=== PATIENT | female | born 2000 | race Caucasian/White ===

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

== ENCOUNTER 2018-02-28 18:01 | Inpatient (IN) | payer OTHER ==
[2018-02-28] MEDS: Dextrose 5 % And 0.9 % NaCl 1,000 ML IV SCH (19:38)
[2018-02-28 19:39] VITALS: BMI 23.3
[2018-02-28] MEDS ORDERED: Ondansetron HCl/PF 4 MG/2 ML Vial IVP PRN (19:42)
[2018-02-28] MEDS ORDERED: Ondansetron ODT 4 MG TAB PO PRN (19:42)
[2018-02-28] MEDS ORDERED: Mag-Al 1200 mg/1200 mg/30 ML UDCUP PO PRN (19:42)
[2018-02-28] MEDS ORDERED: Vancomycin HCl 1.25 GM in Sodium Chloride 0.9% 250 ML 250 ML IVPB SCH (20:15)
[2018-02-28] MEDS: Acetaminophen 325 MG TAB PO PRN (20:48)
[2018-02-28] MEDS: Famotidine 20 MG TAB PO SCH (20:49)
[2018-02-28] MEDS: Docusate 100 MG CAP PO SCH (20:50)
[2018-02-28] MEDS: Cefepime 2 GM, Syringe 2.5 ML in Sterile Water 10 ML SLOW IVP SCH (20:59)
[2018-02-28] MEDS ORDERED: Vancomycin HCl 1 GM in Premix Bag 1 BAG IVPB SCH (21:00)
[2018-02-28 21:10] LABS: Calc. Creatinine Clearance 132 mL/min (70-130); Estimated GFR-MDRD Greater than 90
[2018-02-28 21:33] LABS: Bilirubin Small (Negative); Blood, Urine Negative (Negative); Clarity CLEAR (Clear); Glucose, Urine (Dipstick) Negative (Negative); Leukocyte Negative (Negative); Nitrite Negative (Negative); Protein, Urine (Dipstick) Trace mg/dL (Neg-Trace); Specific Gravity, Urine 1.024 (1.002-1.036)
[2018-02-28 21:35] LABS: Bacteria/HPF Rare-Few HPF (None Seen); Hyaline Casts/LPF 0-3 HYALINE CAST LPF (0-3 Hyaline); Pathc Cast-AUWi Flag 0.43 (0-2.49); RBC/HPF 0-3 HPF (0-3); Squamous Epithelial 0-3 HPF (0-3); WBC/HPF 0-3 HPF (0-3)
[2018-02-28] MEDS ORDERED: Cefepime 2 GM in Sodium Chloride 0.9% 100 ML IVPB SCH (22:00)
--- NOTE | 2018-03-01 01:58 | HP ---
PRIMARY CARE PHYSICIAN: Currently does not have the primary care physician. CHIEF COMPLAINT: Fever and low white blood cell count. HISTORY OF PRESENT ILLNESS: Ms. Zacarias is a pleasant 17-year-old female that has a history of ulcera tive colitis. She says that her problem started about 2 weeks ago when she says she generally was no t feeling well. She was having some vomiting and nausea, which she attributed to some type of GI bug . She says that she started shortly after she had her stitches removed for surgery to remove a pilon idal cyst. She says at that time she was also feeling sweaty and having chills. These symptoms got a little bit better, but then she felt like she should go to see her manager hvac since she has this history of ulcerative colitis to make sure that everything was okay with regard to the GI syste m. At that time, she saw Dr. Yousif and he did some lab work and noted that her white blood cell cou nt was low. She says it was around 2000 at that time, and he attributed to the mercaptopurine, which she had been on since September. She says that time past and the nausea got better, but she still fe lt lethargic and like she was going to pass out and was having high fevers last night was 102 and the n earlier today it was 103. She came to see Dr. Yousif once again and this time lab work showed that her white count was even lower at 1000 with 22% neutrophils, 10% bands, and for this reason she was recommended to come to the ER to be directly admitted for neutropenic fever. The patient denies any other symptoms such as sore throat, cough, or congestion, no chest pain, no shortness of breath, no d iarrhea, no abdominal pain, no dysuria. REVIEW OF SYSTEMS: Constitutional: She has had subjective fever as well as chills, no night sweats, no weight loss. HEENT: She denies any headache, no dizziness, no sore throat, no rhinorrhea, neck pain, no adenopathy. Pulmonary: No hemoptysis, no cough, no wheezing. Cardiovascular: She denies any chest pain, no shortness of breath, no PND, and orthopnea. Gastrointestinal: She has had some n ausea, but no vomiting, no diarrhea, no blood in the stools. Genitourinary: No urinary frequency, h ematuria, no hesitancy. Neurologic: No focal weakness, numbness, no seizures. Musculoskeletal: No muscle pains, weakness, or joint pains. Skin And Integument: No skin changes. No rash. PAST MEDICAL HISTORY: Significant for ulcerative colitis. PAST SURGICAL HISTORY: She has surgery for ingrown toenails, recent surgery for pilonidal cyst remov al on 02/03/2018. She says she has had numerous colonoscopies. ALLERGIES: No known drug allergies. SOCIAL HISTORY: She is a nonsmoker, nondrinker. She is single and she is a student at [employer]. FAMILY HISTORY: Negative for any inheritable diseases. CURRENT MEDICATIONS: Include mercaptopurine, mesalamine, folic acid, and control pills. PHYSICAL EXAMINATION: GENERAL: She is alert and oriented. She appears to be in no acute distress. VITAL SIGNS: Her heart rate is 98, temperature is 99.8, and respiratory rate is 18. HEENT: Pupils are equal, round, and reactive. Extraocular muscles are intact. Her sclerae anicteri c. Throat no erythema, no exudates. NECK: No adenopathy, no bruits. LUNGS: Clear to auscultation with no wheezing or rales. CARDIOVASCULAR: She has a normal S1 and S2. I did not appreciate any S3 or S4. No murmurs, clicks or rubs. ABDOMEN: Soft. It is nontender, nondistended. Positive for bowel sounds. There is no rebound or g uarding. EXTREMITIES: There is no clubbing, cyanosis, no edema. NEUROLOGICALLY: The exam is nonfocal. SIGNIFICANT LABORATORY DATA: White blood cell count is 1.0, hemoglobin 9.4, hematocrit is 26.6, plat elet count is 34. Sodium 141, potassium 3.9, chloride is 105, CO2 is 29, BUN of 8, creatinine of 0.6 7, glucose is 84. AST is 38, ALT is 86. ASSESSMENT AND PLAN: This is a pleasant 17-year-old female who presented to her manager hvac's office with fever, generalized malaise, and actually pancytopenia. Her absolute neutrophil count is around 300, and therefore she is at risk for typical as well as opportunistic infections. She will be admitted and placed on neutropenic precautions. She will be started on broad-spectrum IV antibiot ics and her infectious disease specialist, Dr. Arora has been consulted. For the pancytopenia, this is presumed to be secondary to mercaptopurine, she has not had any dose si nce approximately a week ago. We will continue to monitor the trend. Should we not see improvement in the pancytopenia then we may need to consult Hematology as well. Blood and urine cultures as well as chest x-ray will be obtained. Further testing with regard to potential infectious disease proces ses will be as per Dr. Arora.
[2018-03-01] MEDS: Cefepime 2 GM, Syringe 2.5 ML in Sterile Water 10 ML SLOW IVP SCH ×2 (05:42→13:12)
[2018-03-01] MEDS: Acetaminophen 325 MG TAB PO PRN ×2 (05:47→16:29)
[2018-03-01] MEDS: Vancomycin HCl 1 GM in Premix Bag 1 BAG IVPB SCH ×3 (05:47→22:17)
[2018-03-01 05:48] LABS: Band 2 % (5-11); Eosinophils 6 % (0-10); Hemoglobin 10.1 g/dL (12.0-16.0); Lymphocytes 70 % (28-48); MDiff Complete? YES; Mean Corpuscular HGB CONC 34.6 g/dL (32.0-36.0); Mean Corpuscular Hemoglobin 33.9 pg (25.0-35.0); Mean Platelet Volume 13.5 fL (7.4-10.4); Monocytes 6 % (0-4); Neutrophil 16 % (31-61); PLT Morphology Comment Appears Decreased; Platelet Count 47 thou/uL (130-400); RBC Distribution Width 19.8 % (11.5-14.5); Red Blood Cell (RBC) Count 2.97 mill/uL (4.00-5.20); White Blood Cell (WBC) Count 1.6 thou/uL (4.8-10.8)
--- NOTE | 2018-03-01 06:06 | CON ---
DATE OF CONSULTATION: 02/28/2018 HISTORY OF PRESENT ILLNESS: Ms. Zacarias seen in the office today, she is a 17-year-old with history o f ulcerative colitis; I saw her initially last year for the first time, last July. She reported a diagnosis of Crohn's in 2015. She also got this in 2016 while living in [place]. She has had a sm all perirectal abscess, however, at one point in time, she had rapid progression of a flare in sympto ms over the July and ended up hospitalized with IV steroids at one time, on the way she was treate d for C. diff and was treated for inflammatory bowel disease. Ultimately, she finally did calm down with a pretty heavy dose steroid taper and 5-ASA drugs, went home on 08/05/2017, with this being the second large steroid taper, she required since her diagnosis 2 years ago. Discussed immunomodulator and biologic therapy, she opted for the immunomodulator therapy. We started on 6-MP 75 mg daily. Mac murcia had normal TPMT activity. She was very slow to come off the steroids and had a couple of small fla res as we tapered. In December, she had low 6-TG of 203 after being on 100 mg a day of 6-MP that was on 12/21 and she was started in early July. The decision was going to made to bump her dose ____ she was moved to 150 mg. Retrospect, this is a poor choice as her MCV had gone to 103 by 12/21, and it was 107 on 02/02 with a white count dropped from 8.4-2.7. Her platelet count, however, was stabl e 170 and 320 on 02/02. The patient came in last week in my office and noted she was having some fev er, nausea, vomiting, diarrhea, felt she has gastroenteritis. She had a white count of 2000 with ANC calculated at 1600. Her symptoms had almost completely resolved, she was given stool studies, but d id not complete these as her symptoms have all resolved completely. She returned today; however, hav ing fever for the last week up to 103. Her white count was 1, her hemoglobin was 9.4, and platelet c ount was 34,000 with 22% neutrophils, ANC at 220. She looked fine in the office. We had stopped the 6-MP last week when her counts were noted to be dropping, but with her neutropenia and fever, felt t he need to admit her and probably get ID involved and probably start her empiric antibiotics. She denies any rashes or arthralgias. She has had some sweats. She denies any headaches or vision c hanges. PAST MEDICAL HISTORY: Inflammatory bowel disease. PAST SURGICAL HISTORY: Colonoscopy in 08/11/2017 and in 2016. ALLERGIES: None. HOME MEDICATIONS: She continues Lialda and she was on 6-MP 50 mg 2.5 a day, she is on Samara cont rol pills. She is on no other supplements. SOCIAL HISTORY: She is a ____ she is a freshman. She is planning on going overseas for school, I th ink this semester she has finals coming up this week. PHYSICAL EXAMINATION: VITAL SIGNS: In my office on exam, she was afebrile. Vital signs are stable. HEENT: Oropharynx without lesions. NECK: Supple, without adenopathy. LUNGS: Clear. HEART: Regular rate and rhythm, without clicks or murmurs. ABDOMEN: Soft, nontender, without palpable hepatosplenomegaly. EXTREMITIES: No clubbing, cyanosis or edema. LABORATORY DATA: Comprehensive metabolic profile is normal except for AST and ALT of 38 and 86. ASSESSMENT: Neutropenic fever. PLAN: I have talked to Hospitalist, Dr. Murray about getting her admitted. Cultures. Start her on b road spectrum antibiotics. We will ask ID to see her and we would ask Hematology to see her to see i f their opinion is on whether she should be given Neupogen or start bone marrow stimulant. At this t gina, she seems not very ill, I am not sure it is necessary to jump to have this.
[2018-03-01] MEDS: Dextrose 5 % And 0.9 % NaCl 1,000 ML IV SCH ×3 (06:27→22:18)
[2018-03-01] MEDS: Docusate 100 MG CAP PO SCH ×2 (07:39→20:49)
[2018-03-01] MEDS: Famotidine 20 MG TAB PO SCH ×2 (07:39→20:49)
--- NOTE | 2018-03-01 10:07 | RAD ---
TWO VIEW CHEST: HISTORY: Hospital admittance with chest screening. FINDINGS: Lung ferreira are clear. Heart and mediastinum appear normal. Osseous structures are unremarkable. IMPRESSION: No acute finding. POS: [facility]
[2018-03-01 12:26] LABS: Ref Lab Test Ordered THIOMETS; Reference Lab Name LABCORP
--- NOTE | 2018-03-01 13:11 | PRG ---
DATE OF SERVICE: 03/01/2018 The patient feels a little bit sluggish and just fatigued, malaise today. She has no headache. She has no nausea, vomiting or diarrhea. She has no cough. PHYSICAL EXAMINATION: VITAL SIGNS: Temperature max recorded is 101.5 at 0420 this morning. The patient states she was act ually 102 overnight, pulse is 98, blood pressure 116/76. HEENT: Oropharynx clear. NECK: Supple. LUNGS: Clear. HEART: Regular rate and rhythm. ABDOMEN: Nontender. LABORATORY STUDIES: White count 1.6 with hemoglobin 10.6, MCV is 98, platelet count is 47,000 16% se gs, 70% lymphocytes. 02/02/2018, showing negative HIV test. 12/21/2017 - She had negative ____. Chest x-ray; no acute findings. Urine normal. Microbiology: Blood cultures negative. Clostridium difficile not done as this was formed stool. ASSESSMENT: 1. Neutropenic fever. Cultures negative thus far on Vancomycin and cefepime. She has continued to have fever and today cultures are negative thus far. She has a little malaise. Yesterday she felt b yomaira. We will await ID consult. 2. Neutropenia, likely related to the 6-MP this was started in July at 100 mg a day. Her dose wa s increased on 12/21/2017 to 125 mg daily. She had a subtherapeutic level after 4 months. However, shortly after this on 02/02/2018 she had a dropped white count 2.7. The drug was held. She had feve r that began. She had a diarrheal illness about 2 weeks ago which resolved and now neutropenic fever . She has been seen by Hematology yesterday who recommended holding off on Neupogen or Neulasta. Mac murcia is awaiting ID consult today. I have discussed with the patient the fact that I do not think she should travel to [facility] if she is neutropenic. PLAN: Continue regular diet, hydration, reverse isolation, antibiotics, folic acid.
--- NOTE | 2018-03-01 14:08 | PDOC.PN ---
- Subjective Encounter Start Date: 03/01/18 Encounter Start Time: 14:06 Ms. Zacarias was seen today in follow-up of Neutropenic fever. She says she feels a little worse today. she has a sore throat, and noted some congestion and post nasal drip. She also feels more lethargic. - Objective Resuscitation Status: Resuscitation Status FULL:Full Resuscitation MAR Reviewed: Yes Vital Signs & Weight: Vital Signs (12 hours) Temp Pulse Resp BP BP Pulse Ox 03/01/18 11:39 98 18 116/76 100 03/01/18 08:06 97.5 F L 104 H 16 108/69 95 03/01/18 08:00 97.5 F L 104 H 16 03/01/18 07:33 100 F H 03/01/18 04:21 101.5 F H 99 20 137/83 100 Weight Weight 140 lb 8 oz I&O: 02/28/18 03/01/18 03/02/18 06:59 06:59 06:59 Intake Total 120 Balance 120 Result Diagrams: 03/01/18 04:28 02/28/18 20:30 Phys Exam - Physical Examination HEENT: PERRLA, sclera anicteric, oral pharynx no lesions Neck: no nodes Respiratory: no wheezing, no rales, no rhonchi, clear to auscultation bilateral Cardiovascular: RRR, no significant murmur, no rub Gastrointestinal: soft, non-tender, no distention, positive bowel sounds Musculoskeletal: no edema Dx/Plan (1) Neutropenic fever Code(s): D70.9 - NEUTROPENIA, UNSPECIFIED; R50.81 - FEVER PRESENTING WITH CONDITIONS CLASSIFIED ELSEWHERE Status: Acute (2) Ulcerative colitis Code(s): K51.90 - ULCERATIVE COLITIS, UNSPECIFIED, WITHOUT COMPLICATIONS Status: Acute - Plan * Neutropenic Fever- continue Cefepime and Vancomycin. All cultures are negative so far * Ulcerative Colitis- stable does not appear to have active disease now * Tachycardia- suspect this is from fever- will monitor consider CTA of chest if it persists * Await ID input.
[2018-03-01] MEDS ORDERED: Chloraseptic Spray 180 ml Bottle PO PRN (14:15)
[2018-03-01] MEDS ORDERED: Loratadine/Pseudoephedrine 10/240 mg Tablet PO PRN (14:16)
[2018-03-01] MEDS ORDERED: Meropenem 1 GM in Sodium Chloride 0.9% 100 ML IVPB SCH (20:00)
[2018-03-01] MEDS: MEROPENEM 1 GM/50 ML 1 GM in Premix Bag 1 BAG IVPB SCH (20:48)
[2018-03-01 21:52] LABS: Vancomycin, Trough 11.1 ug/mL
--- NOTE | 2018-03-01 23:21 | CON ---
DATE OF CONSULTATION: 03/01/2018 REASON FOR CONSULTATION: Neutropenia with fever. HISTORY OF PRESENT ILLNESS: A 17-year-old with history of ulcerative colitis and also on mercaptopurine, mesalamine, folic acid, and control pills, who developed neutropenia. She also had some surgery to remove a pilonidal cyst. The patient had been taken mercaptopurine since September and probably the drug caused the neutropenia. On arrival, her heart rate was 98, temperature 99.8, and respiratory rate 18. The exam was fairly unremarkable. Initial white cell count 1.0 with about 250 neutrophils, hemoglobin 9.4, platelets 34, and creatinine 0.67. Currently, she is awake. She does not appear in distress. Denies headaches, no visual symptoms, sore throat, odynophagia, and dysphagia. No cough or sputum production. No chest pain, no abdominal pain, and no pain in the surgical site. No joint symptoms. No neurological symptoms. PAST MEDICAL HISTORY: Ulcerative colitis, pilonidal cyst with recent removal, ingrown toenails, and colonoscopies. ALLERGIES: None. SOCIAL HISTORY: Nonsmoker. She is a student at [employer]. No drug use. FAMILY HISTORY: Noncontributory. CURRENT MEDICATIONS: Cefepime, dextrose, docusate, famotidine, folic acid, loratadine, ondansetron, and vancomycin. PHYSICAL EXAMINATION: VITAL SIGNS: T-max 102.6 currently 101.9, pulse is 111, respiratory rate 18, and O2 sat 99%. GENERAL: Appears in no distress. SKIN: Not remarkable. No petechia. The pilonidal cyst surgical site has just mild erythema, no tenderness, no drainage. Stitches that were removed a few weeks ago. The patient has a peripheral IV access. No lymphadenopathy. HEENT: Ocular movements are conjugate. Nasal passages patent. Oral cavity moist. NECK: Supple, no jugular venous distention. LUNGS: Symmetric clear breath sounds. HEART: S1, S2, regular rate. No S3 or S4. ABDOMEN: Soft, nondistended or tender. The pilonidal cyst surgical site is not tender, does not appear swollen, there is no drainage, only mild redness at the site of the incision. All stitches have been removed. EXTREMITIES: Moves all extremities equally. No edema. Pulses normal in dorsalis pedis. Plantar responses are flexure. NEUROLOGIC: Nonfocal. LABORATORY DATA: White cell count 1.6, hemoglobin 10.1, platelets 47,000 with 18% neutrophils plus bands that will give us approximately 280-300 neutrophil characteristics in the peripheral blood. Chemistry with a creatinine 0.69. Urinalysis was fairly unremarkable except for some bilirubin. Thiopurine methyltransferase assay has been submitted. ASSESSMENT: Ulcerative colitis with mercaptopurine toxicity, neutropenia, now with fever. DISCUSSION: Mercaptopurine toxicity is a fairly common occurrence in this type of setting and usually associated with polymorphisms in the metabolism of the drug. The onset of this type of manifestations can be a sudden or more delayed. The duration of neutropenia can after discontinuation of the drug be up to 1 month, so it may be a somewhat delayed progress of neutropenia recovery as opposed to what one sees with the usual chemotherapeutic agent. The patient has developed fever and the usual pathogens associated with neutropenic fever need to be considered in addition to viral pathogens. Cultures have been submitted. It does not appear that there is any inflammatory process at the pilonidal cyst site; however, one has to acknowledge that this in the presence of neutropenia inflammatory manifestations may be subdued. Because of that history of pilonidal surgery, I think the addition of vancomycin and transitioning to meropenem is justified. Consider growth factor administration. MTDD
[2018-03-02] MEDS: Acetaminophen 325 MG TAB PO PRN ×3 (00:35→23:30)
[2018-03-02] MEDS: MEROPENEM 1 GM/50 ML 1 GM in Premix Bag 1 BAG IVPB SCH ×3 (04:21→21:01)
[2018-03-02 04:51] LABS: Band 2 % (5-11); Hemoglobin 8.8 g/dL (12.0-16.0); Lymphocytes 88 % (28-48); MDiff Complete? YES; Mean Corpuscular HGB CONC 35.2 g/dL (32.0-36.0); Mean Corpuscular Hemoglobin 34.3 pg (25.0-35.0); Mean Corpuscular Volume 97.4 fl (77.0-87.0); Mean Platelet Volume 10.5 fL (7.4-10.4); Neutrophil 10 % (31-61); PLT Morphology Comment Appears Decreased; Platelet Count 39 thou/uL (130-400); RBC Distribution Width 20.3 % (11.5-14.5); Red Blood Cell (RBC) Count 2.55 mill/uL (4.00-5.20); White Blood Cell (WBC) Count 1.5 thou/uL (4.8-10.8)
[2018-03-02] MEDS: Vancomycin HCl 1 GM in Premix Bag 1 BAG IVPB SCH ×3 (05:44→22:42)
[2018-03-02] MEDS: Folic Acid 1 MG TAB PO SCH (08:45)
[2018-03-02] MEDS: Docusate 100 MG CAP PO SCH ×2 (08:45→21:01)
[2018-03-02] MEDS: Famotidine 20 MG TAB PO SCH ×2 (08:45→21:01)
[2018-03-02] MEDS: Dextrose 5 % And 0.9 % NaCl 1,000 ML IV SCH (14:16)
--- NOTE | 2018-03-02 15:15 | PDOC.PN ---
- Subjective Encounter Start Date: 03/02/18 Encounter Start Time: 15:12 Ms. Zacarias was seen seen in follow-up of Neutropenic fever. She says she has a little sore throat, but otherwise ok. - Objective Resuscitation Status: Resuscitation Status FULL:Full Resuscitation MAR Reviewed: Yes Vital Signs & Weight: Vital Signs (12 hours) Temp Pulse Resp BP Pulse Ox 03/02/18 11:25 97.9 F 107 H 16 107/71 98 03/02/18 08:00 98.5 F 109 H 16 93/57 L 98 03/02/18 05:00 98.0 F Weight Weight 140 lb 8 oz I&O: 03/01/18 03/02/18 03/03/18 06:59 06:59 06:59 Intake Total 120 Balance 120 Result Diagrams: 03/02/18 03:49 02/28/18 20:30 Phys Exam - Physical Examination HEENT: PERRLA Respiratory: no wheezing, no rales, no rhonchi, clear to auscultation bilateral Cardiovascular: RRR, no significant murmur, no rub Gastrointestinal: soft, non-tender, no distention, positive bowel sounds Musculoskeletal: no edema Dx/Plan (1) Neutropenic fever Code(s): D70.9 - NEUTROPENIA, UNSPECIFIED; R50.81 - FEVER PRESENTING WITH CONDITIONS CLASSIFIED ELSEWHERE Status: Acute (2) Ulcerative colitis Code(s): K51.90 - ULCERATIVE COLITIS, UNSPECIFIED, WITHOUT COMPLICATIONS Status: Acute - Plan * Neutropenic Fever- Continue Vancomycin and Cefepime * Discussed with Dr. Arora- will check lower extremity dopplers to rule out VTE , and if negative then she can possibly be discharged home this afternoon on oral antibiotics * Neutropenia- is about the same- it may take some time to recover from the Mercaptopurine * UC- Stable.
--- NOTE | 2018-03-02 16:26 | ULT ---
ULTRASOUND WITH DOPPLER DUPLEX VENOUS LOWER EXTREMITIES BILATERAL: 03/02/18 HISTORY: 17-year-old female with bilateral lower extremity edema. TECHNIQUE: Color flow Doppler, spectral waveform analysis of pulsed Doppler, and chapa-scale imaging with corbin austin and augmentation, were used to evaluate the bilateral common femoral, femoral, popliteal, advertiser ior tibial, and superficial femoral, veins; and the proximal portions of the profunda femoral and gre ater saphenous, veins. FINDINGS: There is normal compressibility, demonstration of blood flow by color Doppler and pulsed Doppler, and response to augmentation, in all interrogated veins. IMPRESSION: Negative. No deep vein thrombosis in the bilateral lower extremities. jn[] POS: [facility]
--- NOTE | 2018-03-02 20:29 | PRG ---
DATE OF SERVICE: 03/02/2018 SUBJECTIVE: Feeling about the same, still having fevers she has 101 at this time. No respiratory sy mptoms. No abdominal pain, no pain at the pilonidal surgery site. No neurological symptoms. No jessie rrhea. She has defervesced up to 101.6 again. OBJECTIVE: LUNGS: Clear. S1, S2, regular rate. ABDOMEN: Soft and not distended. No joint inflammatory activity noted. LABORATORY DATA: White cell count 1.5, hemoglobin 8.8, platelets 39. Total neutrophil count is at l ittle bit more than 150. Blood cultures no growth thus far. C. diff negative. Urine culture negati ve. Venogram negative. Chest x-ray with no infiltrate. ASSESSMENT: Ulcerative colitis with a mercaptopurine induced neutropenia, anemia and thrombocytopeni a is still having fever, we will continue meropenem and vancomycin for the time being. May have to add antifungals tomorrow if she continues to have fever, consider starting grew Neupogen since I expe ct a more protracted course of neutropenia then with the usual chemotherapeutic agent.
[2018-03-02 21:46] LABS: Vancomycin, Trough 14.2 ug/mL
--- NOTE | 2018-03-03 01:05 | PRG ---
DATE OF SERVICE: 03/02/2018 SUBJECTIVE: Ms. Zacarias continues to feel some malaise. OBJECTIVE: VITAL SIGNS: She was afebrile all day until 5:00 she had a temperature of 101.6, blood pressure 110/ 71, respirations 18, pulse 110 when she spikes fever. GENERAL: She has no rashes. She is alert and oriented. LUNGS: Clear. ABDOMEN: Soft, nontender. LABORATORY STUDIES: White count 1.5, hemoglobin 8.8, platelets 39,000, absolute neutrophil count ruperto culated at about 180. ASSESSMENT: 1. Neutropenic fever persist. She is on broad-spectrum antibiotics. I have talked with Dr. Rob and Dr. Arora today. With ongoing fever, Dr. Arora is concerned if she does not respond to antibioti cs then he would possibly have to add antifungal. He thinks that we should consider giving Neupogen or other bone marrow stimulant. I have talked with Dr. Tavarez and he is willing to go ahead and do that and was going to order that. With regard to infection, she is going to use . She is afebr ile. We will need to follow her closely in the outpatient setting after that with counts. It is pos sible that she could get another Neupogen shot in the future. We had a long discussion tonight about her plans for a trip overseas this summer for school and now that may need to be put on hold if her neutropenia has not resolved. 2. Neutropenia secondary to 6-mercaptopurine. That is being held, she is on folic acid and we will continue to monitor closely. She requested a blood count will be drawn tomorrow as they are having h eric time finding a spot for that, and we will go ahead and hold off on that tomorrow unless something changes blood count has been relatively stable.
[2018-03-03] MEDS: MEROPENEM 1 GM/50 ML 1 GM in Premix Bag 1 BAG IVPB SCH ×3 (03:55→20:08)
[2018-03-03] MEDS: Dextrose 5 % And 0.9 % NaCl 1,000 ML IV SCH ×3 (03:58→20:04)
[2018-03-03] MEDS: Acetaminophen 325 MG TAB PO PRN ×3 (05:19→17:55)
[2018-03-03] MEDS: Vancomycin HCl 1 GM in Premix Bag 1 BAG IVPB SCH ×3 (05:19→22:17)
[2018-03-03] MEDS: Famotidine 20 MG TAB PO SCH ×2 (09:05→20:13)
[2018-03-03] MEDS: Docusate 100 MG CAP PO SCH ×2 (09:05→20:13)
[2018-03-03] MEDS: Folic Acid 1 MG TAB PO SCH (09:05)
[2018-03-03 12:20] LABS: Anisocytosis MODERATE=16-30 cells (100X) (0-5/hpf); Band 5 % (5-11); Hemoglobin 8.9 g/dL (12.0-16.0); Lymphocytes 81 % (28-48); MDiff Complete? YES; Mean Corpuscular HGB CONC 35.7 g/dL (32.0-36.0); Mean Corpuscular Hemoglobin 34.4 pg (25.0-35.0); Mean Corpuscular Volume 96.4 fl (77.0-87.0); Mean Platelet Volume 11.5 fL (7.4-10.4); Monocytes 7 % (0-4); Neutrophil 4 % (31-61); Ovalocytes SLIGHT = 2-5 cells (100X) (0-1/hpf); PLT Morphology Comment Appears Decreased; Platelet Count 51 thou/uL (130-400); Polychromasia MODERATE = 3-4 cells (100X) (0-2/hpf); RBC Distribution Width 20.6 % (11.5-14.5); Reactive Lymphocytes 3 % (0-10); Red Blood Cell (RBC) Count 2.59 mill/uL (4.00-5.20); Schistocytes SLIGHT = 2-5 cells (100X) (0-1/hpf); White Blood Cell (WBC) Count 2.3 thou/uL (4.8-10.8)
--- NOTE | 2018-03-03 13:57 | PRG ---
DATE OF SERVICE: 03/03/2018 Ms. Zacarias still has a headache although no blurry vision. She had some visitors from school up here today. PHYSICAL EXAMINATION: VITAL SIGNS: She did have a temperature last night of 101.3 at 2100, but she has been afebrile since that time. T-max 98.2 this morning. LUNGS: Lungs are clear. NECK: Supple, without adenopathy. HEENT: Oropharynx without lesions. ABDOMEN: Nontender. LABORATORY STUDIES: White count 2.3, hemoglobin 8.9, platelet count 51,000, 9% neutrophils. Vancomy lucille trough was 14.2. Microbiology thus far negative. ASSESSMENT: 1. Neutropenic fever, continues on a vancomycin and meropenem. Cultures negative. She was given Fi lgrastim yesterday by Dr. Tavarez. 2. History of ulcerative colitis in remission. 3. Neutropenia secondary to 6-MP status post Filgrastim given for persistent fever with the neutrope jaylene. PLAN: 1. Continue present medications. We will start her Asacol. She is taking his from her home medicin e anyway, which is acceptable. She is also on folic acid daily. 2. We will continue to follow along during her hospitalization.
--- NOTE | 2018-03-03 17:04 | PDOC.PN ---
- Subjective Encounter Start Date: 03/03/18 Encounter Start Time: 17:02 Ms. Zacarias is still noting some soreness in her throat. She also notes a headache. - Objective Resuscitation Status: Resuscitation Status FULL:Full Resuscitation MAR Reviewed: Yes Vital Signs & Weight: Vital Signs (12 hours) Temp Pulse Resp BP Pulse Ox 03/03/18 16:59 101.9 F H 03/03/18 11:34 98.2 F 03/03/18 07:48 98.4 F 87 16 114/73 97 03/03/18 07:13 99.2 F 87 16 97 Weight Weight 140 lb 8 oz I&O: 03/02/18 03/03/18 03/04/18 06:59 06:59 06:59 Intake Total 1680 Balance 1680 Result Diagrams: 03/03/18 11:29 02/28/18 20:30 Phys Exam - Physical Examination HEENT: PERRLA Respiratory: no wheezing, no rales, no rhonchi, clear to auscultation bilateral Cardiovascular: RRR, no significant murmur, no rub Gastrointestinal: soft, non-tender, no distention, positive bowel sounds Musculoskeletal: no edema Dx/Plan (1) Neutropenic fever Code(s): D70.9 - NEUTROPENIA, UNSPECIFIED; R50.81 - FEVER PRESENTING WITH CONDITIONS CLASSIFIED ELSEWHERE Status: Acute (2) Ulcerative colitis Code(s): K51.90 - ULCERATIVE COLITIS, UNSPECIFIED, WITHOUT COMPLICATIONS Status: Acute - Plan * Neutropenic fever- cultures are negative so far. * Will continue Vancomycin and Cefepime * She was given Filgrastim yesterday * Hopefully home soon if her temp remains down
--- NOTE | 2018-03-03 17:31 | PRG ---
DATE OF SERVICE: 03/03/2018 SUBJECTIVE: Ms. Zacarias is quite awake and is feeling better. No headaches or may had some headaches , but now better. No visual symptoms, sore throat, odynophagia or dysphagia. No respiratory symptom s or abdominal pain, no diarrhea. PHYSICAL EXAMINATION: VITAL SIGNS: Showed T-max of 101.3 yesterday at 8 p.m., today's max was 99.2, blood pressure 114/72, pulse 87, respirations 16. GENERAL APPEARANCE: Appears in no distress. LUNGS: Clear. ABDOMEN: Soft. SKIN: Normal. Peripheral IV access appears okay. LABORATORY DATA: White cell count is up to 2.3, hemoglobin 8.9, platelets at 51,000. Chemistry is n ot remarkable. Blood cultures thus far negative. ASSESSMENT AND DISCUSSION: Ulcerative colitis with mercaptopurine induced neutropenia, anemia and th rombocytopenia, some improvement is clear cut. Hopefully, white cell count is trending up, this is i ncrease in band percentage and that hopefully is a harbinger of further increases in the total WBC co unt. Best case scenario, she goes home tomorrow once the neutrophil count is above 500 and she remai ns afebrile on oral levofloxacin or ciprofloxacin.
[2018-03-03 21:33] LABS: Vancomycin, Trough 14.4 ug/mL
[2018-03-04] MEDS: Acetaminophen 325 MG TAB PO PRN ×2 (00:55→06:28)
[2018-03-04] MEDS: Dextrose 5 % And 0.9 % NaCl 1,000 ML IV SCH ×3 (03:35→22:07)
[2018-03-04] MEDS: MEROPENEM 1 GM/50 ML 1 GM in Premix Bag 1 BAG IVPB SCH ×3 (03:35→19:59)
[2018-03-04] MEDS: Vancomycin HCl 1 GM in Premix Bag 1 BAG IVPB SCH ×3 (05:29→22:07)
[2018-03-04 06:18] LABS: Band 4 % (5-11); Hemoglobin 9.3 g/dL (12.0-16.0); Hypochromia SLIGHT = 6-15 cells (100X) (0-5/hpf); Lymphocytes 52 % (28-48); MDiff Complete? YES; Mean Corpuscular Hemoglobin 34.1 pg (25.0-35.0); Mean Corpuscular Volume 97.4 fl (77.0-87.0); Mean Platelet Volume 13.1 fL (7.4-10.4); Monocytes 26 % (0-4); Neutrophil 10 % (31-61); PLT Morphology Comment Appears Decreased; Platelet Count 63 thou/uL (130-400); Polychromasia SLIGHT = 2-3 cells (100X) (0-2/hpf); RBC Distribution Width 20.9 % (11.5-14.5); Reactive Lymphocytes 8 % (0-10); Red Blood Cell (RBC) Count 2.72 mill/uL (4.00-5.20); Schistocytes SLIGHT = 2-5 cells (100X) (0-1/hpf); White Blood Cell (WBC) Count 3.6 thou/uL (4.8-10.8)
[2018-03-04 06:20] LABS: Free T4 (Free Thyroxine) 0.96 ng/dL (0.70-1.48); Thyroid Stimulating Hormone 1.4204 uIU/mL (0.35-4.94)
[2018-03-04] MEDS: Folic Acid 1 MG TAB PO SCH (08:41)
[2018-03-04] MEDS: Famotidine 20 MG TAB PO SCH ×2 (08:41→20:01)
[2018-03-04] MEDS: Docusate 100 MG CAP PO SCH ×2 (08:41→20:00)
--- NOTE | 2018-03-04 14:04 | PDOC.PN ---
- Subjective Encounter Start Date: 03/04/18 Encounter Start Time: 14:02 Ms. Zacarias was seen today in follow-up. She continues to have a headache, which is constant and difficult to localize. She denies any visual changes, and denies any neck stiffness. - Objective Resuscitation Status: Resuscitation Status FULL:Full Resuscitation MAR Reviewed: Yes Vital Signs & Weight: Vital Signs (12 hours) Temp Pulse Resp BP Pulse Ox 03/04/18 09:32 98.9 F 03/04/18 08:00 99.6 F 103 H 16 96 03/04/18 07:37 99.6 F 103 H 16 115/74 96 03/04/18 02:22 99.8 F H Weight Weight 140 lb 8 oz I&O: 03/03/18 03/04/18 03/05/18 06:59 06:59 06:59 Intake Total 1680 1334 Balance 1680 1334 Result Diagrams: 03/04/18 05:11 02/28/18 20:30 Phys Exam - Physical Examination HEENT: PERRLA, sclera anicteric Respiratory: no wheezing, no rales, no rhonchi, clear to auscultation bilateral Cardiovascular: RRR, no significant murmur, no rub Gastrointestinal: soft, non-tender, no distention, positive bowel sounds Musculoskeletal: no edema Dx/Plan (1) Neutropenic fever Code(s): D70.9 - NEUTROPENIA, UNSPECIFIED; R50.81 - FEVER PRESENTING WITH CONDITIONS CLASSIFIED ELSEWHERE Status: Acute (2) Ulcerative colitis Code(s): K51.90 - ULCERATIVE COLITIS, UNSPECIFIED, WITHOUT COMPLICATIONS Status: Acute - Plan * Neutropenic fever- continue Vancomycin, and Cefepime * Cultures are negative- ? etiology * ANC is now 504 after Filgrastim. * Ulcerative Colitis- stable
--- NOTE | 2018-03-04 15:30 | PRG ---
DATE OF SERVICE: 03/04/2018 This is a cross coverage for Dr. Sea Yousif. SUBJECTIVE: Ms. Amirah Zacarias is a very pleasant 17-year-old female with a history of ulcer ative colitis diagnosed 2 years ago. The patient subsequently developed neutropenia and fever. The patient also . From a colitis standpoint, she is actually doing very well. She has no abdomina l pain, no diarrhea, or hematochezia. She is on broad spectrum antibiotic therapy. She currently dumont s a low-grade fever. This morning, her temperature max was 103 at 01:25 a.m. It is come down to 99. 6. She has no abdominal pain, no nausea, no vomiting. PHYSICAL EXAMINATION: VITAL SIGNS: Temperature 99.6 degree fahrenheit, pulse is 103, and blood pressure 115/74. CARDIOVASCULAR: First and second heart sounds normal. LUNGS: Clear to auscultation. ABDOMEN: Soft and nontender. No organomegaly. No masses. LABORATORY DATA: The lab data shows WBC coming up to lower to 10%, lymphocytes 52%, hemoglobin 9.3. CLINICAL IMPRESSION: Neutropenic fever, the blood culture negative so far. She is on IV antibiotic therapy. Although, her WBC is coming up, her neutrophil count is still at lower 10%. RECOMMENDATION: 1. Diet as tolerated. 2. Continue antibiotics.
[2018-03-04] MEDS: Aspirin/APAP/Caffeine Tab (Excedrin Migraine) PO PRN (16:01)
[2018-03-04] MEDS: TBO FILGRASTIM SC SCH (18:38)
[2018-03-04] MEDS: PRE FILLED SC SCH (18:38)
[2018-03-04 21:53] LABS: Vancomycin, Trough 14.9 ug/mL
[2018-03-05] MEDS: MEROPENEM 1 GM/50 ML 1 GM in Premix Bag 1 BAG IVPB SCH ×3 (03:58→20:31)
[2018-03-05] MEDS: Vancomycin HCl 1 GM in Premix Bag 1 BAG IVPB SCH ×3 (05:44→21:34)
[2018-03-05 05:55] LABS: ALT (SGPT) 42 U/L (8-55); AST (SGOT) 24 U/L (5-30); Albumin 3.3 g/dL (3.5-5.0); Alkaline Phosphatase 61 U/L (40-150); Anion Gap 11 mmol/L (10-20); BUN (Urea Nitrogen) 6 mg/dL (8.4-21.0); Bilirubin, Total 0.6 mg/dL (0.2-1.2); Calc. Creatinine Clearance 126 mL/min (70-130); Calcium 8.6 mg/dL (7.8-10.44); Carbon Dioxide 25 mmol/L (22-29); Chloride 103 mmol/L (98-107); Estimated GFR-MDRD Greater than 90; Globulin 2.8 g/dL (2.4-3.5); Glucose 106 mg/dL (70-105); Potassium 3.9 mmol/L (3.5-5.1); Protein, Total 6.1 g/dL (6.0-8.3); Sodium 135 mmol/L (136-145)
[2018-03-05 06:03] LABS: Anisocytosis SLIGHT = 6-15 cells (100X) (0-5/hpf); Band 5 % (5-11); Eosinophils 1 % (0-10); Hemoglobin 9.1 g/dL (12.0-16.0); Lymphocytes 55 % (28-48); MDiff Complete? YES; Macrocytosis SLIGHT = 6-15 cells (100X) (0-5/hpf); Mean Corpuscular HGB CONC 34.9 g/dL (32.0-36.0); Mean Corpuscular Hemoglobin 33.9 pg (25.0-35.0); Mean Platelet Volume 8.3 fL (7.4-10.4); Monocytes 7 % (0-4); Myelocyte 1 % (0-0); Neutrophil 14 % (31-61); PLT Morphology Comment Appears Decreased; Platelet Count 77 thou/uL (130-400); RBC Distribution Width 21.2 % (11.5-14.5); Reactive Lymphocytes 17 % (0-10); Red Blood Cell (RBC) Count 2.68 mill/uL (4.00-5.20); Tear Drops SLIGHT = 2-5 cells (100X) (0-1/hpf); White Blood Cell (WBC) Count 4.8 thou/uL (4.8-10.8)
[2018-03-05] MEDS: Acetaminophen 325 MG TAB PO PRN ×3 (07:46→22:10)
[2018-03-05] MEDS: Famotidine 20 MG TAB PO SCH ×2 (07:46→20:32)
[2018-03-05] MEDS: Folic Acid 1 MG TAB PO SCH (07:46)
[2018-03-05] MEDS: Docusate 100 MG CAP PO SCH ×2 (07:46→20:31)
[2018-03-05] MEDS ORDERED: Fluconazole 100 MG TAB PO SCH (09:00)
[2018-03-05] MEDS: Dextrose 5 % And 0.9 % NaCl 1,000 ML IV SCH ×2 (11:31→20:31)
[2018-03-05] MEDS: Micafungin 100 MG in Sodium Chloride 0.9% 100 ML IVPB SCH (12:19)
--- NOTE | 2018-03-05 13:48 | PDOC.PN ---
- Subjective Encounter Start Date: 03/05/18 Encounter Start Time: 13:47 Ms. Zacarias was seen today in follow-up of Neutropenic fever. She says the headache she was experiencing is much better today. She is still having fever. She denies having any GI symptoms such as abdominal pain, diarrhea, ect. - Objective Resuscitation Status: Resuscitation Status FULL:Full Resuscitation MAR Reviewed: Yes Vital Signs & Weight: Vital Signs (12 hours) Temp Pulse Resp BP Pulse Ox 03/05/18 11:13 98.5 F 03/05/18 10:01 98.9 F 03/05/18 09:00 100.7 F H 03/05/18 08:00 103.1 F H 114 H 16 97 03/05/18 07:31 103.1 F H 114 H 16 118/77 97 Weight Weight 140 lb 8 oz I&O: 03/04/18 03/05/18 03/06/18 06:59 06:59 06:59 Intake Total 1334 1292 Balance 1334 1292 Result Diagrams: 03/05/18 04:49 03/05/18 04:49 Phys Exam - Physical Examination HEENT: PERRLA, sclera anicteric Respiratory: no wheezing, no rales, no rhonchi, clear to auscultation bilateral Cardiovascular: RRR, no significant murmur, no rub Gastrointestinal: soft, non-tender, no distention, positive bowel sounds Musculoskeletal: no edema Dx/Plan (1) Neutropenic fever Code(s): D70.9 - NEUTROPENIA, UNSPECIFIED; R50.81 - FEVER PRESENTING WITH CONDITIONS CLASSIFIED ELSEWHERE Status: Acute (2) Ulcerative colitis Code(s): K51.90 - ULCERATIVE COLITIS, UNSPECIFIED, WITHOUT COMPLICATIONS Status: Acute - Plan * Neutropenic Fever - continue broad Vancomycin and Zosyn. Micafungin has been added- case discussed with Dr. Arora * Ulcerative Colitis- ? Quiescent or not * Her ANC is now about 1000, can discontinue Neutropenic precautions * .
--- NOTE | 2018-03-05 15:08 | PRG ---
DATE OF SERVICE: 03/05/2018 SUBJECTIVE: Little bit of headaches during the febrile episodes. Otherwise, no shortness of breath or chest pain, no abdominal pain, no cramps or diarrhea. No genitourinary symptoms. OBJECTIVE: VITAL SIGNS: T-max 103.1, currently 98.5. Other vital signs are normal. HEENT: Normal. NECK: Supple. LUNGS: Symmetric clear breath sounds. HEART: S1, S2, regular rate. No S3, S4. ABDOMEN: Soft, not distended or tender. No joint inflammatory activity. NEUROLOGIC: Nonfocal. LABORATORY DATA: White cell count is up to 4.8, hemoglobin 9.1, platelets 77,000 14% neutrophils, 5% bands. Total neutrophil count about 1000 and creatinine 0.72. Microbiology with negative cultures. ASSESSMENT AND DISCUSSION: Ulcerative colitis with toxicity from mercaptopurine and neutropenia/panc ytopenia now with improvement. Still having febrile episodes. We will add antifungal medication daniel afungin. Continue meropenem and vancomycin. In her situation, the possibility of reactivation of ul cerative colitis is another concern. Clostridium difficile colitis is not apparent at this time.
[2018-03-05] MEDS: PRE FILLED SC SCH (18:12)
[2018-03-05] MEDS: TBO FILGRASTIM SC SCH (18:12)
[2018-03-06] MEDS: MEROPENEM 1 GM/50 ML 1 GM in Premix Bag 1 BAG IVPB SCH ×2 (03:36→12:20)
[2018-03-06] MEDS: Dextrose 5 % And 0.9 % NaCl 1,000 ML IV SCH ×2 (05:28→17:48)
[2018-03-06] MEDS: Vancomycin HCl 1 GM in Premix Bag 1 BAG IVPB SCH ×2 (05:32→13:25)
[2018-03-06 06:21] LABS: Band 11 % (5-11); Hemoglobin 9.3 g/dL (12.0-16.0); Lymphocytes 68 % (28-48); MDiff Complete? YES; Mean Corpuscular HGB CONC 34.7 g/dL (32.0-36.0); Mean Corpuscular Hemoglobin 34.3 pg (25.0-35.0); Mean Corpuscular Volume 98.7 fl (77.0-87.0); Mean Platelet Volume 10.2 fL (7.4-10.4); Metamyelocyte 2 % (0-0); Monocytes 6 % (0-4); Myelocyte 1 % (0-0); Neutrophil 12 % (31-61); PLT Morphology Comment Appears Decreased; Platelet Count 79 thou/uL (130-400); RBC Distribution Width 21.6 % (11.5-14.5); Red Blood Cell (RBC) Count 2.71 mill/uL (4.00-5.20)
[2018-03-06] MEDS: Folic Acid 1 MG TAB PO SCH (08:21)
[2018-03-06] MEDS: Famotidine 20 MG TAB PO SCH ×2 (08:21→20:36)
[2018-03-06] MEDS: Acetaminophen 325 MG TAB PO PRN (08:21)
[2018-03-06] MEDS: Docusate 100 MG CAP PO SCH ×2 (08:22→20:36)
--- NOTE | 2018-03-06 09:13 | PRG ---
DATE OF SERVICE: 03/05/2018 SUBJECTIVE: This is a 17-year-old female with ulcerative colitis, diagnosed 2 years ago. She was on 6-MP and developed fever and neutropenia. The patient also . She has empiric antibi otic therapy with broad-spectrum antibiotics. She also has been seen by Hematology because of neutro penia. The patient is actually feeling better from a GI standpoint. She has no abdominal pain, no d iarrhea, no rectal bleeding. She has good appetite. She has no headache today. She actually appear s clinically much better. However, she continues to spike fever of 103. and responds to Tyle nol. Her cultures have been negative. She had really no symptoms for fever. OBJECTIVE: GENERAL: Appears comfortable. VITAL SIGNS: She is afebrile this morning, but she has fever of 103 early this morning, pulse is 114 , and blood pressure 118/77. CARDIOVASCULAR: First and second heart sounds normal. LUNGS: Clear to auscultation. ABDOMEN: Soft to palpate. No organomegaly. No tenderness. No masses. LABORATORY DATA: From this morning shows WBC count of 4800, polymorphs is 14%, lymphocytes 55%, reac tive lymphs 17%. Her chemistry panel is normal with normal electrolytes and BUN. CLINICAL IMPRESSION: A 17-year-old female with fever, mostly because of cytopenia. The cu lture is negative. She is on broad-spectrum antibiotic therapy, but she is not responding as she has been spiking fever of 103 everyday. She really has no symptoms. Dr. Arora has been following the patient and probably will decide what is the next course of action. Continue supportive care.
--- NOTE | 2018-03-06 13:01 | PDOC.PN ---
- Subjective Encounter Start Date: 03/06/18 Encounter Start Time: 12:58 Ms. Zacarias was seen today in follow-up of Neutropenic fever. She says she is feeling better, less lethargic. She still notes some sinus congestion. - Objective Resuscitation Status: Resuscitation Status FULL:Full Resuscitation MAR Reviewed: Yes Vital Signs & Weight: Vital Signs (12 hours) Temp Pulse Resp BP Pulse Ox 03/06/18 11:00 98.9 F 95 16 112/75 98 03/06/18 08:00 100.8 F H 119 H 16 112/73 97 03/06/18 04:58 99.3 F Weight Weight 140 lb 8 oz I&O: 03/05/18 03/06/18 03/07/18 06:59 06:59 06:59 Intake Total 1292 1110 Balance 1292 1110 Result Diagrams: 03/06/18 04:27 03/05/18 04:49 Phys Exam - Physical Examination HEENT: PERRLA, sclera anicteric Neck: no nodes Respiratory: no wheezing, no rales, no rhonchi, clear to auscultation bilateral Cardiovascular: RRR, no significant murmur, no rub Gastrointestinal: soft, non-tender, no distention, positive bowel sounds Musculoskeletal: no edema Dx/Plan (1) Neutropenic fever Code(s): D70.9 - NEUTROPENIA, UNSPECIFIED; R50.81 - FEVER PRESENTING WITH CONDITIONS CLASSIFIED ELSEWHERE Status: Acute (2) Ulcerative colitis Code(s): K51.90 - ULCERATIVE COLITIS, UNSPECIFIED, WITHOUT COMPLICATIONS Status: Acute - Plan * Neutropenic fever-? etiology Cultures are negative ANC -1,380. She looks stable, and has few complaints. * Continue IV antibiotics, including Vancomycin and Cefepime, and antifungal- Micafungin. * Ulcerative Colitis- stable * Await ID recommendations
[2018-03-06] MEDS: Micafungin 100 MG in Sodium Chloride 0.9% 100 ML IVPB SCH (14:24)
[2018-03-06] MEDS: Aspirin/APAP/Caffeine Tab (Excedrin Migraine) PO PRN (14:47)
[2018-03-06] MEDS: PRE FILLED SC SCH (17:48)
[2018-03-06] MEDS: TBO FILGRASTIM SC SCH (17:48)
[2018-03-06] MEDS: Ciprofloxacin 500 MG TAB PO SCH (20:36)
--- NOTE | 2018-03-06 21:14 | PRG ---
DATE OF SERVICE: 03/06/2018 SUBJECTIVE: Ms. Zacarias is eating well. She is not having any diarrhea or bleeding. She has no tene smus symptoms. She has continued to have fever over the weekend, but it has slowly come down. She was 103 last night when the nurses tells me and I look at the vital signs. OBJECTIVE: VITAL SIGNS: She looks like the max, she was 100.7. GENERAL: She is alert and oriented to person, place, and time. HEENT: Oropharynx without lesions. NECK: Supple. LUNGS: Clear. CARDIAC: Heart regular without clicks or murmurs. ABDOMEN: Nontender. Pulse max 119 early this morning, 100 now, blood pressure 111/73. Blood cultures and urine culture s till negative. Respiratory virus panel 53. Swab was negative. No signs of active colitis. No sign s or symptoms of C. diff. ASSESSMENT: Neutropenic fever. The white count is now about 6000, ANC is about 1500. Her fever see ms to be improving. She has been switched off of IV antibiotics to p.o. antibiotic and added IV anti fungal. We will start her on probiotics this point in time. Continue to follow.
--- NOTE | 2018-03-06 23:07 | PRG ---
DATE OF SERVICE: 03/06/2018 HISTORY OF PRESENT ILLNESS: No headaches, no visual symptoms and sore throat. No aphasia, dysphagia . No cough or sputum production or chest pain. No abdominal pain or diarrhea, felt dizzy when she w as standing up, taking a bath. PHYSICAL EXAMINATION: VITAL SIGNS: T-max 100.8, BP 111/73, pulse 100, O2 saturation 97%. GENERAL: Appears no distress, oriented. Oral cavity normal. LUNGS: Clear. HEART: S1, S2. No murmurs. ABDOMEN: Soft. EXTREMITIES: Moves all extremities equally. LABORATORY DATA: White cell count is up to 6.0, hemoglobin 9.3, MCV 98, platelets 79,000. Total rakesh trophil count about 1200, 12% neutrophils, 11% bands. ASSESSMENT AND DISCUSSION: Ulcerative colitis with mercaptopurine and associated pancytopenia plus f ever. All cultures are negative. We will transition to oral Cipro. Continue micafungin. Discontin ue vancomycin and meropenem. It is possible that the fever might be related to discontinuation of im munosuppressive treatment for ulcerative colitis.
[2018-03-07] MEDS: Acetaminophen 325 MG TAB PO PRN ×3 (00:05→21:58)
[2018-03-07] MEDS: Ciprofloxacin 500 MG TAB PO SCH ×2 (05:20→20:43)
[2018-03-07] MEDS: Dextrose 5 % And 0.9 % NaCl 1,000 ML IV SCH ×4 (05:20→17:23)
[2018-03-07 05:54] LABS: Acanthocytes SLIGHT = 1-5 cells (100X) (None Seen); Anisocytosis MODERATE=16-30 cells (100X) (0-5/hpf); Band 9 % (5-11); Differential Comment Plasma-like Cell(s); Elliptocytes SLIGHT = 2-5 cells (100X) (0-1/hpf); Hemoglobin 9.6 g/dL (12.0-16.0); Lymphocytes 23 % (28-48); MDiff Complete? YES; Mean Corpuscular HGB CONC 34.9 g/dL (32.0-36.0); Mean Corpuscular Hemoglobin 34.3 pg (25.0-35.0); Mean Corpuscular Volume 98.4 fl (77.0-87.0); Mean Platelet Volume 9.5 fL (7.4-10.4); Metamyelocyte 5 % (0-0); Monocytes 9 % (0-4); Neutrophil 34 % (31-61); Nucleated RBC 2 % (0); Ovalocytes SLIGHT = 2-5 cells (100X) (0-1/hpf); PLT Morphology Comment Appears Decreased; Platelet Count 101 thou/uL (130-400); Polychromasia SLIGHT = 2-3 cells (100X) (0-2/hpf); RBC Distribution Width 21.5 % (11.5-14.5); Reactive Lymphocytes 16 % (0-10); Reflex for Review?? YES; Toxic Granulation SLIGHT; White Blood Cell (WBC) Count 9.3 thou/uL (4.8-10.8)
[2018-03-07] MEDS: Docusate 100 MG CAP PO SCH ×2 (07:50→22:20)
[2018-03-07] MEDS: Folic Acid 1 MG TAB PO SCH (07:50)
[2018-03-07] MEDS: Famotidine 20 MG TAB PO SCH ×2 (07:50→20:43)
[2018-03-07] MEDS: Lactinex Tablet PO SCH (07:50)
--- NOTE | 2018-03-07 10:31 | PDOC.PN ---
- Subjective Encounter Start Date: 03/07/18 Encounter Start Time: 10:29 Ms. Zacarias was seen today in follow-up of Neutropenic fever. She says she had a bad night last night, due to high fever. She had trouble sleeping after that. She is feeling a little better this morning. - Objective Resuscitation Status: Resuscitation Status FULL:Full Resuscitation MAR Reviewed: Yes Vital Signs & Weight: Vital Signs (12 hours) Temp 03/07/18 04:00 98.2 F Weight Weight 140 lb 8 oz I&O: 03/06/18 03/07/18 03/08/18 06:59 06:59 06:59 Intake Total 1110 1999 Balance 1110 1999 Result Diagrams: 03/07/18 04:09 03/05/18 04:49 Phys Exam - Physical Examination HEENT: PERRLA, oral pharynx no lesions Respiratory: no wheezing, no rales, no rhonchi, clear to auscultation bilateral Cardiovascular: RRR, no significant murmur, no rub Gastrointestinal: soft, non-tender, positive bowel sounds Musculoskeletal: no edema Dx/Plan (1) Neutropenic fever Code(s): D70.9 - NEUTROPENIA, UNSPECIFIED; R50.81 - FEVER PRESENTING WITH CONDITIONS CLASSIFIED ELSEWHERE Status: Acute (2) Ulcerative colitis Code(s): K51.90 - ULCERATIVE COLITIS, UNSPECIFIED, WITHOUT COMPLICATIONS Status: Acute - Plan * Neutropenic fever- ? source of the fever. Her ANC is now gone up to close to 4000. * She has been placed on Cipro orally * UC- ? quiescent * Home when cleared by ID.
[2018-03-07] MEDS: Micafungin 100 MG in Sodium Chloride 0.9% 100 ML IVPB SCH (11:03)
[2018-03-07 12:13] LABS: Pregnancy Test - Urine (BHCG) Negative (Negative)
[2018-03-07 12:15] LABS: Pregu Control Background? CLEAR/WHITE (CLR/WHITE); Pregu Control Bar Appear? YES (CONTROL BAR); Specific Gravity 1.013 (1.002-1.036)
--- NOTE | 2018-03-07 13:18 | PRG ---
DATE OF SERVICE: 03/07/2018 SUBJECTIVE: Ms. Zacarias is still having some tachycardia. A little bit of headache during the febril e episodes. No respiratory symptoms, no abdominal pain, no diarrhea. Voiding without difficulty, ab le to ambulate. No joint symptoms or skin disorder. OBJECTIVE: VITAL SIGNS: Still having temperature elevation and she was up to 100.5 at 8:00 p.m. yesterday. HEENT: Ocular movements conjugate. Oral cavity normal. LUNGS: Clear. HEART: S1, S2, regular rate. ABDOMEN: Soft, not tender. No joint inflammatory activity. SKIN: No skin disorder. LABORATORY: White cell count is up to 9.3, hemoglobin 9.6, platelets are up to 101. Neutrophil up t o 34, bands are at 9. She is really getting out nicely from the neutropenic state. The chemistries okay as well. Albumin 3.3. ASSESSMENT AND DISCUSSION: Ulcerative colitis with mercaptopurine induced neutropenia, now improved; however, is still with intermittent fever. I have switched her to Cipro and continue micafungin. Stephanie Yousif believes that the ulcerative colitis is less likely the culprit here in terms of the febril e episodes. We will check CMV, DNA, PCR to rule out cytomegalovirus as the culprit. CT of chest and abdomen and pelvis with contrast.
[2018-03-07] MEDS ORDERED: ISOVUE-370 76%-LOCM 1 ML ONE (14:58)
--- NOTE | 2018-03-07 15:10 | CT ---
CT THROAX WITH IV CONTRAST CT ABDOMEN AND PELVIS WITH IV CONTRAST: DATE: 03/07/18. HISTORY: Patient with ulcerative colitis currently quiescent. The patient was admitted with neutropenic fever . FINDINGS: CT THROAX: The lungs are clear. There is no evidence of lymphadenopathy. Thoracic aorta is normal in caliber. Osseous structures are intact. CT ABDOMEN AND PELVIS: The spleen is mildly enlarged measuring 14 cm in craniocaudal dimensions. The liver, pancreas, bilateral adrenal glands, kidneys, abdominal aorta, urinary bladder, uterus, and adnexal structures demonstrate a normal CT appearance. There is a small amount of free fluid in the pelvis. No dilated loops of small bowel are present. The appendix is normal in caliber. There is no colonic wall thickening present and no pericolonic inflammatory changes are appreciated. No enlarged lymph nodes are seen by CT size criteria, but there are a mildly increased number of mese nteric and aortocaval lymph nodes which are overall nonspecific. IMPRESSION: 1. Splenomegaly. 2. Nonspecific mild increased number of mesenteric and aortocaval lymph nodes. 3. Normal caliber small bowel loops. There is no bowel wall thickening involving the colon or loops of small bowel. 4. Small amount of free fluid in the pelvis. 5. No acute findings in the chest. POS: [facility]
--- NOTE | 2018-03-07 17:00 | CON ---
DATE OF SERVICE: 03/07/2018 SUBJECTIVE: Ms. Zacarias states that she had a fever again last night to 103. The nurse confirms this around midnight last night. Presently, she states there is no headache, no neck pain. She has a li ttle bit of sinus congestion, postnasal drip, but no sore throat. She denies cough. She has abdomin al pain. She has 1 bowel movement a day, which is nonbloody and formed. She denies any shortness of breath. OBJECTIVE: VITAL SIGNS: Her temperature is presently 99, pulse 111, respirations 16, blood pressure 111/75. HEENT: Oropharynx without lesions. NECK: Supple without any adenopathy. LUNGS: Clear. HEART: Has sinus tachycardia. There are no murmurs. AXILLAE: Revealed no adenopathy. SKIN: Without rash or lesions. Inguinal area, no adenopathy. EXTREMITIES: Legs are nonswollen. No edema. LABORATORY STUDIES: White count today is 9.3 with a hemoglobin 9.6, platelet count 101, 34% neutroph ils, 9% bands. Differential, there is some plasma-like cells. Chemistry on 03/05/2018 was normal. Microbiology: Respiratory panel on the was normal. Urine culture and blood culture and C. diffi cile all negative. ASSESSMENT: 1. Ulcerative colitis, in clinical remission. 2. Neutropenic fever, secondary to 6-MP presumptively 3. Ongoing fever with improvement in absolute neutrophil count greater than 500 with filgrastim. All cultures are negative. She does have resting tachycardia. She has had negative evaluation for d eep vein thromboses. She has had negative chest x-ray. Differential diagnosis includes medication r eaction, undiagnosed infection. She did get started on an antifungal just a couple days ago. There are no signs of active colitis. Lymphoma was always a concern in the setting of 6-MP or Imuran, whic h she had only been since July. It seems less likely. There is no overt adenopathy. PLAN: We will talk with Dr. Arora in regard to further evaluation of fever, whether we need an echoc ardiogram, consider bone marrow biopsy, consider abdominal imaging.
[2018-03-07] MEDS: TBO FILGRASTIM SC SCH (17:20)
[2018-03-07] MEDS: PRE FILLED SC SCH (17:20)
[2018-03-08] MEDS: Acetaminophen 325 MG TAB PO PRN (03:58)
[2018-03-08] MEDS: Dextrose 5 % And 0.9 % NaCl 1,000 ML IV SCH ×2 (03:59→08:27)
[2018-03-08] MEDS: Ciprofloxacin 500 MG TAB PO SCH (04:01)
[2018-03-08 07:37] VITALS: BP 109/74
[2018-03-08] MEDS: Docusate 100 MG CAP PO SCH (08:27)
[2018-03-08] MEDS: Famotidine 20 MG TAB PO SCH (08:28)
[2018-03-08] MEDS: Folic Acid 1 MG TAB PO SCH (08:28)
[2018-03-08] MEDS: Lactinex Tablet PO SCH (08:28)
--- NOTE | 2018-03-08 10:14 | PDOC.PN ---
- Subjective Encounter Start Date: 03/08/18 Encounter Start Time: 10:12 Subjective: still having nocturnal fever - Objective Resuscitation Status: Resuscitation Status FULL:Full Resuscitation MAR Reviewed: Yes Vital Signs & Weight: Vital Signs (12 hours) Temp Pulse Resp BP Pulse Ox 03/08/18 07:28 98.1 F 97 16 95 03/08/18 07:25 98.1 F 97 16 109/74 95 03/08/18 04:00 99.1 F 03/08/18 00:00 99.9 F H Weight Weight 140 lb 8 oz I&O: 03/07/18 03/08/18 03/09/18 06:59 06:59 06:59 Intake Total 1999 4516 Balance 1999 4516 Result Diagrams: 03/07/18 04:09 03/05/18 04:49 Phys Exam - Physical Examination Neck: no JVD Respiratory: clear to auscultation bilateral Cardiovascular: RRR, no significant murmur Gastrointestinal: soft, non-tender, positive bowel sounds Musculoskeletal: no edema Dx/Plan (1) Pancytopenia Code(s): D61.818 - OTHER PANCYTOPENIA Status: Acute (2) Neutropenic fever Code(s): D70.9 - NEUTROPENIA, UNSPECIFIED; R50.81 - FEVER PRESENTING WITH CONDITIONS CLASSIFIED ELSEWHERE Status: Resolved (3) Ulcerative colitis Code(s): K51.90 - ULCERATIVE COLITIS, UNSPECIFIED, WITHOUT COMPLICATIONS Status: Acute Qualifiers: Ulcerative colitis location: unspecified ulcerative colitis location Digestive disease complication type: unspecified complication Qualified Code(s ): K51.919 - Ulcerative colitis, unspecified with unspecified complications (4) Fever and chills Code(s): R50.9 - FEVER, UNSPECIFIED Status: Acute - Plan cont current tx, discuss with ID * .
[2018-03-08] MEDS: Micafungin 100 MG in Sodium Chloride 0.9% 100 ML IVPB SCH (11:25)
[2018-03-08] MEDS: Aspirin/APAP/Caffeine Tab (Excedrin Migraine) PO PRN (11:29)
[2018-03-08 11:40] VITALS: TEMP 98.9
--- NOTE | 2018-03-08 14:21 | DIS ---
DATE OF ADMISSION: 02/28/2018 DATE OF DISCHARGE: 03/08/2018 PRIMARY CARE PROVIDER: Sea Yousif M.D. DISCHARGE DISPOSITION: Home. FINAL DIAGNOSES: Neutropenic fever, pancytopenia, ulcerative colitis. DISCHARGE MEDICATIONS: Floranex one a day, Cipro 500 mg p.o. b.i.d. for 1 week, Diflucan 400 mg p.o. daily x1 week. ALLERGIES: No known allergies. CODE STATUS: FULL CODE status. PENDING AT THE TIME OF DISCHARGE: CMV titers. HOSPITAL COURSE: Patient was admitted with fever, pancytopenia with a severe neutropenia, has a hist ory of ulcerative colitis on mercaptopurine, mesalamine, folic acid. She was seen in consultation by Dr. Sea Yousif, Dr. Scott Arora. Chest x-ray normal. Venous Doppler both lower extremiti es negative. CT of the abdomen and pelvis, splenomegaly, nonspecific lymphadenopathy. No free fluid in the pelvis. Laboratory, initial white count 1.6, hemoglobin 10.1, platelet count 47,000. Chemis tries: Sodium 135, blood sugar 106, otherwise normal. Urine is unremarkable. She was treated with the neutropenic fever protocol with vancomycin, broad spectrum gram negative coverage. During hospit al course, she has continued to have intermittent fevers. Her white count was initially 1.[address] opping the azathioprine with up to 4.8 on 03/05 and 6.0 on 03/06. Her blood cultures, no growth at 5 days. Urine culture no growth. RSV panel negative for parainfluenza, adenovirus, RSV, influenza. Pending is a cytomegalovirus. Patient's status is improved. She is still having fever at least once a day which responds to Tylenol. She is being discharged on the aforementioned antibiotics to [facility] w up with Dr. Arora in 1 week. She is to follow up with Dr. Yousif. CONDITION AT TIME OF DISCHARGE: Feeling well. PHYSICAL EXAMINATION: VITAL SIGNS: Normal. CARDIORESPIRATORY: Normal. ABDOMEN: Normal. DISCHARGE MEDICATIONS: She has been kept off her ulcerative colitis medicines for the time being. P rescriptions have been written. Thirty-five minutes spent preparing the discharge.
--- NOTE | 2018-03-08 20:40 | PRG ---
DATE OF SERVICE: 03/08/2018 SUBJECTIVE: Amirah feels well. T-max overnight was listed at 99, while she states she was up to 102 last evening. She has no cough, no shortness of breath. No headache. She feels fatigued. No mike s or arthralgias. OBJECTIVE: VITAL SIGNS: Pulse 97, she was up to 110 last night; blood pressure 109/74. HEENT: Conjunctivae and sclerae are clear. Oropharynx without lesions. NECK: Supple, no adenopathy. There are no bruits. SKIN: Without rashes or lesions in the nails or beds. ABDOMEN: Soft, nontender. EXTREMITIES: No clubbing, cyanosis, or edema. LABORATORY STUDIES: Today, white count is up to 9.3 with hemoglobin of 9.6, and a platelet count of 101. Platelet count had been 39,000 on admission, additionally her MCV has dropped from 107 last wee k before admission to 98.4. She has 34% segs, 9% bands, and ANC of over 4000. Microbiology to date has been negative including respiratory panel. CAT scan of the abdomen and pelvis were negative for signs of colitis or lymphoma. ASSESSMENT AND PLAN: 1. Fever, neutropenic. She had been switched to p.o. antibiotics and is going to be switched to p.o. antifungals, discharged home per Dr. Arora, follow up in 1-2 weeks in his office. 2. With regard to the neutropenia induced by 6-MP, it appears that she may be having some recovery. Her last shot of filgrastim was yesterday evening. Her counts were staying up when appropriately he r platelet count staying up, which may show some bone marrow recovery. Her MCV is also smaller. Greyson poe talked with Dr. Tavarez of Hematology. He is going to see her back in the office this Tuesday in 2 days. Recheck a blood count there. If she has dropped her counts, she will need another shot. We will need to continue that in the outpatient setting. If she holds her counts, maybe a sign that jamie murcia is recovering. 3. With regard to her ulcerative colitis, she was noted to have active disease. I have asked her to continue on her Lialda at 2.4 grams per day. We are going to hold off on the 6-MP. I have asked he r to continue the folic acid. I have recommended that she not travel [place] if the fever persist a s she has planned to. We will see her back in the office in 1-2 weeks.
[2018-03-09 14:24] LABS: CMV DNA-PCR Test Negative (Negative)
== END 2018-03-08 13:52 | disposition home or self-care (01) | DRG 809 ==
LOC: T4-A 18:01
PROVIDERS: ADMIT Internal Medicine; ATTEND Internal Medicine
DX: D70.2 Other drug-induced agranulocytosis (principal); K51.90 Ulcerative colitis, unspecified, without complications; R50.81 Fever presenting with conditions classified elsewhere; T45.1X5A Adverse effect of antineoplastic and immunosuppressive drugs, initial encounter; Z79.3 Long term (current) use of hormonal contraceptives; Z79.899 Other long term (current) drug therapy
CPT/HCPCS: 36415; 71046; 71260; 74177; 80053; 80202; 81001; 81025; 82565; 84439; 84443; 85007; 85025; 85027; 85060; 87040; 87086; 87497; 87633; 93970; A4216; J0692; J1442; J1447; J2185; J2248; J3370; J7050; Q0162